=== PATIENT | male | born 1945 | race Caucasian/White ===

== ENCOUNTER → 2019-02-05 10:31 | Outpatient (CLI) | payer MEDICARE, SELFPAY ==
[2019-02-05 11:13] LABS: Hematocrit 40.9 % (41-53); Mean Corpuscular HGB Conc 34.2 % (30-36); Mean Corpuscular Hemoglobin 33.9 PG (26-34); Mean Corpuscular Volume 99.1 fL (80-100); Platelet Count 155 X10^3/uL (150-400); Red Blood Cell Count 4.13 X10^6/uL (4.5-5.9); Red Cell Distribution Width 14.5 % (11.6-14.8); White Blood Cell Count 2.2 X10^3/uL (4.5-11.0)
[2019-02-05 11:15] LABS: Add Manual Diff / Slide Review YES
[2019-02-05 11:44] LABS: Neutrophils Absolute Manual 418 /uL (3000-5900); Total Cells Counted 100
[2019-02-05 11:45] LABS: RBC Morphology Normal Morphology
== END ==
PROVIDERS: Visit Provider Internal Medicine Hematology & Oncology
DX: D46.20 Refractory anemia with excess of blasts, unspecified (principal)
CPT/HCPCS: 36415; 85025

== ENCOUNTER → 2019-03-12 14:00 | Oncology outpatient (ONC) | payer MEDICARE, SELFPAY ==
[2018-07-16 14:32] LABS: Hematocrit 36.2 % (41-53); Hemoglobin 12.4 g/dL (13.5-17.5); Mean Corpuscular HGB Conc 34.2 % (30-36); Mean Corpuscular Hemoglobin 33.6 PG (26-34); Platelet Count 174 X10^3/uL (150-400); Red Blood Cell Count 3.69 X10^6/uL (4.5-5.9); White Blood Cell Count 2.1 X10^3/uL (4.5-11.0)
[2018-07-16 14:36] LABS: Add Manual Diff / Slide Review YES
[2018-07-16] MEDS: FILGRASTIM-SNDZ 300 MCG/0.5 ML SYRINGE SUBCUT (14:46)
[2018-07-16 15:09] LABS: Neutrophils Absolute Manual 609 /uL (3000-5900); Total Cells Counted 100
[2018-07-16 15:11] LABS: RBC Morphology Normal Morphology
[2018-07-16 15:28] VITALS: BP 132/82; PULSE 62; RESP 14; TEMP 36.7
--- NOTE | 2018-07-16 15:32 | PC.NURSE ---
Feliciano comes in for Zario injection. No complaints. WBC = 2.1 D/C ambulatory.
[2018-07-30 14:36] LABS: Mean Corpuscular Hemoglobin 33.6 PG (26-34)
[2018-07-30 14:42] LABS: Hematocrit 38.1 % (41-53); Hemoglobin 13.1 g/dL (13.5-17.5); Mean Corpuscular HGB Conc 34.3 % (30-36); Mean Corpuscular Volume 97.9 fL (80-100); Platelet Count 153 X10^3/uL (150-400); Red Blood Cell Count 3.89 X10^6/uL (4.5-5.9); Red Cell Distribution Width 14.7 % (11.6-14.8)
[2018-07-30 14:43] LABS: Add Manual Diff / Slide Review YES; White Blood Cell Count 1.9 X10^3/uL (4.5-11.0)
[2018-07-30 15:03] LABS: Neutrophils Absolute Manual 228 /uL (3000-5900); RBC Morphology Normal Morphology; Total Cells Counted 50
[2018-07-30 15:09] VITALS: BP 124/71; PULSE 60; RESP 17; O2SAT 96
[2018-07-30] MEDS: FILGRASTIM-SNDZ 300 MCG/0.5 ML SYRINGE SUBCUT (15:11)
[2018-08-27 08:56] LABS: Hematocrit 39.6 % (41-53); Hemoglobin 13.4 g/dL (13.5-17.5); Mean Corpuscular HGB Conc 33.9 % (30-36); Mean Corpuscular Hemoglobin 33.7 PG (26-34); Mean Corpuscular Volume 99.4 fL (80-100); Platelet Count 156 X10^3/uL (150-400); Red Blood Cell Count 3.99 X10^6/uL (4.5-5.9); Red Cell Distribution Width 14.5 % (11.6-14.8)
[2018-08-27 08:59] LABS: White Blood Cell Count 1.6 X10^3/uL (4.5-11.0)
[2018-08-27 09:00] LABS: Add Manual Diff / Slide Review YES
[2018-08-27] MEDS: FILGRASTIM-SNDZ 300 MCG/0.5 ML SYRINGE SUBCUT (09:19)
[2018-08-27 09:56] LABS: Neutrophils Absolute Manual 352 /uL (3000-5900); Total Cells Counted 100
[2018-08-27 09:57] LABS: Anisocytosis 1+; Hypochromasia 2+
[2018-09-10 10:12] LABS: Hematocrit 40.2 % (41-53); Hemoglobin 13.7 g/dL (13.5-17.5); Mean Corpuscular Hemoglobin 33.7 PG (26-34); Mean Corpuscular Volume 98.9 fL (80-100); Platelet Count 145 X10^3/uL (150-400); Red Blood Cell Count 4.07 X10^6/uL (4.5-5.9); Red Cell Distribution Width 14.4 % (11.6-14.8)
[2018-09-10 10:13] LABS: Add Manual Diff / Slide Review YES
[2018-09-10 10:28] VITALS: BP 129/69; PULSE 60; RESP 16; TEMP 36.6
[2018-09-10] MEDS: FILGRASTIM-SNDZ 300 MCG/0.5 ML SYRINGE SUBCUT (10:34)
[2018-09-10 10:37] LABS: Neutrophils Absolute Manual 420 /uL (3000-5900); Total Cells Counted 100
[2018-09-10 10:38] LABS: Macrocytosis 1+
[2018-09-10 10:40] LABS: Platelet Estimate Decreased on smear
[2018-10-08 13:34] LABS: Add Manual Diff / Slide Review NO; Basophils Absolute Auto 0 /uL (0-100); Basophils Percent Auto 0.7 % (0-2); Eosinophils Absolute Auto 0 /uL (0-450); Eosinophils Percent Auto 1.4 % (2-4); Hematocrit 38.2 % (41-53); Lymphocytes Absolute Auto 900 /uL (1100-4500); Lymphocytes Percent Auto 46.7 % (25-40); Mean Corpuscular HGB Conc 34.1 % (30-36); Mean Corpuscular Hemoglobin 33.5 PG (26-34); Mean Corpuscular Volume 98.2 fL (80-100); Monocytes Absolute Auto 600 /uL (0-900); Neutrophils Absolute Auto 500 /uL (1500-7000); Neutrophils Percent Auto 23.2 % (50-75); Platelet Count 174 X10^3/uL (150-400); Red Blood Cell Count 3.89 X10^6/uL (4.5-5.9); Red Cell Distribution Width 14.1 % (11.6-14.8)
[2018-10-08 13:46] VITALS: BP 124/78; PULSE 66; RESP 16; TEMP 36.5
[2018-10-08] MEDS: FILGRASTIM-SNDZ 300 MCG/0.5 ML SYRINGE SUBCUT (13:47)
[2018-10-22 11:35] LABS: Hematocrit 39.1 % (41-53); Hemoglobin 13.1 g/dL (13.5-17.5); Mean Corpuscular HGB Conc 33.5 % (30-36); Mean Corpuscular Volume 98.7 fL (80-100); Platelet Count 132 X10^3/uL (150-400); Red Blood Cell Count 3.96 X10^6/uL (4.5-5.9); Red Cell Distribution Width 14.4 % (11.6-14.8)
[2018-10-22 11:38] LABS: White Blood Cell Count 1.7 X10^3/uL (4.5-11.0)
[2018-10-22 11:39] LABS: Add Manual Diff / Slide Review YES
[2018-10-22] MEDS: FILGRASTIM-SNDZ 300 MCG/0.5 ML SYRINGE SUBCUT (11:58)
[2018-10-22 12:14] LABS: Neutrophils Absolute Manual 476 /uL (3000-5900); Total Cells Counted 50
[2018-10-22 12:16] LABS: Poikilocytosis 1+; RBC Morphology See
--- NOTE | 2018-10-22 12:27 | PC.NURSE ---
Patient in for filgrastim injection and blood draw. WBC 1.7 today. Patient states feeling well. This nurse reviewed prevention measures against infection with him including frequent hand washing, keeping away from crowds, good oral hygiene, good hydration and healthy diet. Patient reports daily exercise and healthy diet with good hydration. He returns tomorrow for an appointment.
[2018-11-19 10:19] LABS: Hematocrit 38.7 % (41-53); Hemoglobin 13.3 g/dL (13.5-17.5); Mean Corpuscular HGB Conc 34.4 % (30-36); Mean Corpuscular Hemoglobin 33.6 PG (26-34); Mean Corpuscular Volume 97.7 fL (80-100); Platelet Count 144 X10^3/uL (150-400); Red Blood Cell Count 3.97 X10^6/uL (4.5-5.9); Red Cell Distribution Width 14.6 % (11.6-14.8); White Blood Cell Count 2.4 X10^3/uL (4.5-11.0)
[2018-11-19 10:20] LABS: Add Manual Diff / Slide Review YES
[2018-11-19] MEDS: FILGRASTIM-SNDZ 300 MCG/0.5 ML SYRINGE SUBCUT (10:35)
[2018-11-19 10:36] LABS: Morphology Comment Normal Morphology; Neutrophils Absolute Manual 384 /uL (3000-5900); Total Cells Counted 100
[2018-11-19 11:00] VITALS: BP 131/76; PULSE 67; RESP 18; TEMP 36.8
[2018-12-03 10:23] VITALS: BP 131/76; PULSE 73; RESP 16; TEMP 36.7; O2SAT 98
[2018-12-03] MEDS: FILGRASTIM-AAFI 300 MCG/0.5 ML SYRINGE SUBCUT (10:24)
[2018-12-03 10:27] LABS: Add Manual Diff / Slide Review NO; Basophils Absolute Auto 0 /uL (0-100); Basophils Percent Auto 0.4 % (0-2); Eosinophils Absolute Auto 0 /uL (0-450); Eosinophils Percent Auto 1.3 % (2-4); Hematocrit 39.1 % (41-53); Hemoglobin 13.4 g/dL (13.5-17.5); Lymphocytes Absolute Auto 900 /uL (1100-4500); Lymphocytes Percent Auto 39.4 % (25-40); Mean Corpuscular HGB Conc 34.2 % (30-36); Mean Corpuscular Hemoglobin 33.7 PG (26-34); Mean Corpuscular Volume 98.5 fL (80-100); Monocytes Absolute Auto 900 /uL (0-900); Monocytes Percent Auto 37.6 % (3-14); Neutrophils Absolute Auto 500 /uL (1500-7000); Neutrophils Percent Auto 21.3 % (50-75); Platelet Count 159 X10^3/uL (150-400); Red Blood Cell Count 3.97 X10^6/uL (4.5-5.9); Red Cell Distribution Width 14.6 % (11.6-14.8); White Blood Cell Count 2.4 X10^3/uL (4.5-11.0)
[2018-12-31 14:11] VITALS: BP 142/75; PULSE 66; RESP 16; TEMP 36.6; O2SAT 97
[2018-12-31] MEDS: FILGRASTIM-AAFI 480 MCG/0.8 ML SYRINGE SUBCUT (14:15)
[2019-01-14 14:09] VITALS: BP 125/79; PULSE 63; RESP 16; TEMP 36.5
[2019-01-14] MEDS: FILGRASTIM-AAFI 480 MCG/0.8 ML SYRINGE SUBCUT (14:23)
[2019-02-12] MEDS: FILGRASTIM-AAFI 480 MCG/0.8 ML SYRINGE SUBCUT (14:31)
[2019-02-12 14:32] VITALS: BP 125/78; PULSE 66; RESP 16; TEMP 36.7
[2019-02-26] MEDS: FILGRASTIM-AAFI 480 MCG/0.8 ML SYRINGE SUBCUT (14:44)
--- NOTE | 2019-02-26 14:53 | PC.NURSE ---
Pt seen in clinic for injection. RR equal and unlabored, face and body relaxed. Conversing with staff appropriately, no s/s of acute distress. gait steady.
[2019-03-12 14:29] VITALS: BP 140/79; PULSE 75; RESP 16; TEMP 36.8; O2SAT 98
[2019-03-12] MEDS: FILGRASTIM-AAFI 480 MCG/0.8 ML SYRINGE SUBCUT (14:33)
== END ==
PROVIDERS: Visit Provider Internal Medicine Hematology & Oncology
DX: D46.9 Myelodysplastic syndrome, unspecified (principal); D70.9 Neutropenia, unspecified
CPT/HCPCS: 36415; 85025; 96372; Q5101; Q5110

== ENCOUNTER → 2022-03-07 07:57 | Outpatient (CLI) | payer MEDICARE, SELFPAY ==
--- NOTE | 2022-03-07 08:03 | DI.RAD.S_ITS ---
PROCEDURE: XR KUB INDICATIONS: hydronephrosis TECHNIQUE: One view of the abdomen acquired. COMPARISON: [facility], CT, CT ABDOMEN PELVIS WITH CONTRAST, 02/28/2022, 13:27. , CR, KUB XRAY (1 VIEW ABDOMEN), 07/28/2015, 9:12. FINDINGS: Surgical changes and devices: None. Bowel: Bowel gas pattern is normal. Soft tissues: There several punctate calcifications overlying the left renal shadow appearing similar when compared to prior exam. However, significant stool is overlying the shadow. In addition, the calcifications overlying the right kidney on previous exam are no longer visualized. Significant stool is also noted overlying the right kidney. Calcification is noted overlying the expected course of the right ureter at the level of L4 noting prior calcification was at approximately L3. Visualized solid organ contours appear normal in size. Bones: No suspicious bony lesions. IMPRESSION: Relatively similar appearance of calcifications overlying the left renal shadow. No calcifications are noted overlying the right renal shadow. Both kidneys are partially obscured with overlying stool. There is a calcification along the course of the right ureter at the level of L4 appearing slightly progressive compared to prior exam. Dictated by: Shelly Ruiz M.D. on 03/07/2022 at 13:25 Approved by: Shelly Ruiz M.D. on 03/07/2022 at 13:58
== END ==
PROVIDERS: PCP Internal Medicine Hematology & Oncology; Referring Provider Specialist; Visit Provider Specialist
DX: N13.2 Hydronephrosis with renal and ureteral calculous obstruction (principal); N21.0 Calculus in bladder; N40.0 Benign prostatic hyperplasia without lower urinary tract symptoms
CPT/HCPCS: 51798; 74018; 81002; 99215

== ENCOUNTER → 2022-03-22 14:59 | Outpatient (CLI) | payer MEDICARE, SELFPAY ==
[2022-03-22 16:55] LABS: COVID19 -Nasal RAPID Negative (Negative)
== END ==
PROVIDERS: PCP Internal Medicine Hematology & Oncology; Visit Provider Specialist
DX: Z20.822 Contact with and (suspected) exposure to COVID-19 (principal)
CPT/HCPCS: 87635

== ENCOUNTER 2022-03-25 06:26 | Day surgery (SDC) | payer MEDICARE, SELFPAY ==
[2022-03-23 08:30] VITALS: BMI 25.0
[2022-03-25] VITALS (8 sets, daily range): BP systolic 123–141; BP diastolic 75–90; PULSE 60–97; RESP 16–17; TEMP 36.2–36.3; O2SAT 94–100; BMI 25.0
--- NOTE | 2022-03-25 07:23 | DI.RAD.S_ITS ---
PROCEDURE: XR KUB INDICATIONS: PREOP TECHNIQUE: One view of the abdomen acquired. COMPARISON: [facility], CT, CT ABDOMEN PELVIS WITH CONTRAST, 02/28/2022, 13:27. [facility], CR, XR KUB, 03/07/2022, 7:53. FINDINGS: Surgical changes and devices: Partially visualized cardiac pacer lead. Bowel: Bowel gas pattern is normal. Soft tissues: Multiple small calcifications project over the left renal shadow and along the course of the right mid ureter are stable compared to prior exams. Visualized solid organ contours appear normal in size. Bones: No suspicious bony lesions. IMPRESSION: Stable right ureteral and left renal stones. Dictated by: Yamila Manzanares MD, PhD on 03/25/2022 at 14:22 Approved by: Yamila Manzanares MD, PhD on 03/25/2022 at 14:23
--- NOTE | 2022-03-25 07:36 | PM.PREOP ---
Pre-operative Note COVID-19 Criteria for continued procedure: Expected advancement of disease process, Increased loss of function, Deterioration of the patient's condition or overall health, Delay expected to result in less-positive ultimate med/surg outcome and Non-surgical alternatives not available or appropriate per current SOC Interval Note History & Physical reviewed/Exam performed by Physician: Yes Changes to H&P: No
--- NOTE | 2022-03-25 08:17 | SUR.OPER ---
Supine on ESWL bed, head on pillow, arms at sides with <90 degrees abduction, legs uncrossed, wedge under knees. Gel pads under bilateral elbows and heels.
--- NOTE | 2022-03-25 08:27 | SUR.OPER ---
Patient has pitting edema on bilateral ankles/feet. Informed by pre-op nurse. Anesthesia MD & Surgeon aware.
[2022-03-25] MEDS: LACTATED RINGERS 1,000 ML 42 ML IV (09:08)
--- NOTE | 2022-03-25 09:14 | PM.OP.1 ---
Operative Date/Time/Diagnoses Date of procedure: 03/25/22 Time of procedure: 09:05 Pre-op diagnosis: Right proximal ureteral calculi x2. Post-op diagnosis: same Procedure & Clinicians Procedure: 1. Right extracorporeal shockwave lithotripsy (maximal power level 9.0 x 3000 shocks) Same procedure as scheduled: Yes Indications: 1. Right proximal ureteral calculi x2. 2. Moderately severe right hydronephrosis. Surgeon: Joselyn Aceves Click Yes if Unassisted: Yes Anesthesia Type: General Operative Notes Findings: Index calculi are unchanged in position verses perioperative imaging. Closure Type: not applicable Specimen(s): none sent Estimated Blood Loss (mL): 0 Procedure in detail: Patient was positioned supine was administered general anesthesia. The above-described calculi were localized in the X, Y, and Z planes. Lithotripsy was then commenced at minimal power level and gradually increased to maximal power level of 9.0. Treatment was initiated at the lower edge of the leading stone. Throughout the case there was S satisfactory evidence of stone fragmentation, with the exception of the most leading margin of the most distal calculus. At 3000 shocks treatment was halted. The patient was then awakened, transferred to [facility], and transported to PACU in stable condition. Complications: none Post-operative Condition: stable Disposition: PACU Plan for aftercare: Discharge home.
--- NOTE | 2022-03-25 09:18 | SUR.PHASEI ---
Pacemaker rep from [place] [facility] to reset pacemaker to preop settings. pt has been in asynchronous setting since preop.
== END 2022-03-25 09:47 | disposition home or self-care (01) ==
PROVIDERS: PCP Internal Medicine Hematology & Oncology; Referring Provider Specialist; Visit Provider Specialist
PROC: (CPT 50590; principal; 2022-03-25 07:45)
DX: N20.1 Calculus of ureter (principal); N13.30 Unspecified hydronephrosis; Z95.0 Presence of cardiac pacemaker
CPT/HCPCS: 50590; 74018; J1100; J2405; J2704

== ENCOUNTER → 2022-04-04 08:21 | Outpatient (CLI) | payer MEDICARE, SELFPAY ==
--- NOTE | 2022-04-04 08:22 | DI.RAD.S_ITS ---
PROCEDURE: XR KUB INDICATIONS: bladder and ureteral calculus TECHNIQUE: One view of the abdomen acquired. COMPARISON: [facility], CR, XR KUB, 03/25/2022, 7:32. FINDINGS: Surgical changes and devices: None. Bowel: Bowel gas pattern is nonobstructive. Moderate fecal stasis throughout the colon is seen. Soft tissues: Multiple calcifications are again seen projecting in left renal fossa unchanged from prior study. Previously noted calcifications along the course of right mid ureter are no longer seen. Multiple phleboliths are noted in lower pelvis. Visualized solid organ contours appear normal in size. Bones: No suspicious bony lesions. IMPRESSION: Previously described possible right ureteral stones are not seen on the current study. Stable appearing left renal calculi. Dictated by: Yuriy Jimenez M.D. on 04/04/2022 at 10:33 Approved by: Yuriy Jimenez M.D. on 04/04/2022 at 10:48
== END ==
PROVIDERS: PCP Internal Medicine Hematology & Oncology; Referring Provider Specialist; Visit Provider Specialist
DX: N20.2 Calculus of kidney with calculus of ureter; N21.0 Calculus in bladder
CPT/HCPCS: 74018; 82365; 99215

== ENCOUNTER → 2022-04-04 11:47 | Outpatient (CLI) | payer MEDICARE, SELFPAY ==
[2022-04-08 07:45] LABS: Ca oxalate monohydr 100 % (.); Size 4x4 mm (.)
== END ==
PROVIDERS: PCP Internal Medicine Hematology & Oncology; Visit Provider Specialist
DX: N20.0 Calculus of kidney (principal)
CPT/HCPCS: 82365

== ENCOUNTER → 2022-04-19 09:02 | Outpatient (CLI) | payer MEDICARE, SELFPAY ==
[2022-04-19 10:32] LABS: BUN Creatinine Ratio 20.6 (6-22); Blood Urea Nitrogen 29 mg/dL (9-20); Calcium 9.1 mg/dL (8.4-10.2); Carbon Dioxide 27 mmol/L (22-32); Chloride 102 mmol/L (98-107); Estimated Glomerular Filt Rate 51 mL/min (>60); Glucose 111 mg/dL (80-110); HEMOLYSIS < 15 (0-50); Potassium 4.5 mmol/L (3.4-5.1); Sodium 140 mmol/L (137-145)
== END ==
PROVIDERS: PCP Internal Medicine Hematology & Oncology; Referring Provider Nurse Practitioner Acute Care; Visit Provider Nurse Practitioner Acute Care
DX: I50.9 Heart failure, unspecified (principal); R60.9 Edema, unspecified
CPT/HCPCS: 36415; 80048

== ENCOUNTER → 2022-05-27 08:55 | Outpatient (CLI) | payer MEDICARE, SELFPAY ==
--- NOTE | 2022-05-27 08:56 | DI.RAD.S_ITS ---
PROCEDURE: XR KUB INDICATIONS: Kidney stone TECHNIQUE: One view of the abdomen acquired. COMPARISON: [facility], CR, XR KUB, 04/04/2022, 8:27. FINDINGS: Surgical changes and devices: None. Bowel: Bowel gas pattern is normal. Soft tissues: Unchanged stones in the left kidney. No stones in the right kidney. No suspicious abdominal calcifications. Visualized solid organ contours appear normal in size. There are multiple pelvic phleboliths. Bones: No suspicious bony lesions. IMPRESSION: 1. Stable appearing stones in the left kidney. 2. No stones identified in the right kidney. Dictated by: Vincent Bull M.D. on 05/27/2022 at 9:52 Approved by: Vincent Bull M.D. on 05/27/2022 at 9:54
== END ==
PROVIDERS: PCP Internal Medicine Hematology & Oncology; Referring Provider Specialist; Visit Provider Specialist
DX: N20.0 Calculus of kidney (principal); N21.0 Calculus in bladder
CPT/HCPCS: 36415; 74018; 82310; 83970; 84550

== ENCOUNTER → 2022-05-27 09:05 | Outpatient (CLI) | payer MEDICARE, SELFPAY ==
[2022-05-27 11:07] LABS: Calcium 9.1 mg/dL (8.4-10.2); Uric Acid 6.5 mg/dL (3.5-8.5)
[2022-05-28 08:08] LABS: Calcium 8.2 mg/dL (8.6-10.2); Parathyroid Hormone, Intact 48 pg/mL (15-65)
== END ==
PROVIDERS: PCP Internal Medicine Hematology & Oncology; Referring Provider Specialist; Visit Provider Specialist
DX: N20.1 Calculus of ureter (principal); N21.0 Calculus in bladder
CPT/HCPCS: 36415; 82310; 83970; 84550

== ENCOUNTER → 2022-06-21 08:21 | Outpatient (CLI) | payer MEDICARE, SELFPAY ==
--- NOTE | 2022-06-21 08:22 | DI.CT.S_ITS ---
PROCEDURE: CT KIDNEY URETER BLADDER (KUB) INDICATIONS: Kidney Stones check TECHNIQUE: Axial sections were acquired from the lung bases to the pubic symphysis. Coronal and sagittal reformats were performed. For radiation dose reduction, the following was used: automated exposure control, adjustment of mA and/or kV according to patient size. COMPARISON: [facility], CT, CT ABDOMEN PELVIS WITH CONTRAST, 02/28/2022, 13:27. [facility], CT, KIDNEY/ URETER/BLADDER, 12/21/2013, 9:05. FINDINGS: Image quality: Excellent. Lung bases: Unremarkable. Heart: Pacemaker leads partially imaged. Heart size is normal. URINARY: Right Kidney: Several calcified and partially calcified nonobstructing calculi in the right kidney, the largest measuring 5 mm with Hounsfield units of 327. There is no hydronephrosis or significant perirenal inflammation. Right Ureter: No hydroureter or ureteral calcifications. Left Kidney: Several calcified and wispy calcifications in the left kidney. Largest in the lower pole measures about 4 mm with Hounsfield units of 527. No hydronephrosis. Left Ureter: No hydroureter or ureteral calcifications. Bladder: The urinary bladder is decompressed. There are two bladder calculi immediately distal to the right UVJ measuring 6 mm and 10 mm. ABDOMEN: Liver: No suspicious mass. Gallbladder: Decompressed. Biliary ducts: Nondilated. Pancreas: Normal contour. Spleen: Normal size. Adrenal Glands: No nodules. Stomach and Bowel: Stomach, small bowel loops, and colon are unremarkable. Peritoneum: No abnormal intraperitoneal fluid. No free air. Ventral Wall: Tiny fat containing umbilical hernia. Abdominal Nodes: No enlarged retroperitoneal or mesenteric lymph nodes. Vessels: Aorta and inferior vena cava are normal in size. PELVIS: Pelvic Organs: The prostate gland is mildly enlarged measuring about 5.1 x 4.6 by 6.2 cm. Pelvic Nodes: Unremarkable. Miscellaneous: Very small fat containing right inguinal hernia. Bones: Decreased mineralization throughout the pelvis. Disc degeneration L4-5 and sacralization at the L5-S1 level. IMPRESSION: 1. Interval passage of previous obstructing right ureteral calcification. Calcification is now seen in the urinary bladder. 2. There are several other smaller bilateral nonobstructing calcifications. 3. Mildly enlarged prostate gland. Dictated by: Radha Jeffrey M.D. on 06/21/2022 at 11:35 Approved by: Radha Jeffrey M.D. on 06/21/2022 at 11:43
== END ==
PROVIDERS: PCP Internal Medicine Hematology & Oncology; Referring Provider Specialist; Visit Provider Specialist
DX: N20.2 Calculus of kidney with calculus of ureter (principal); N21.0 Calculus in bladder; Z95.0 Presence of cardiac pacemaker; N40.0 Benign prostatic hyperplasia without lower urinary tract symptoms
CPT/HCPCS: 74176

== ENCOUNTER → 2022-06-25 08:05 | Outpatient (CLI) | payer MEDICARE, SELFPAY ==
--- NOTE | 2022-06-25 08:08 | DI.RAD.S_ITS ---
PROCEDURE: XR KUB INDICATIONS: Kidney stone TECHNIQUE: One view of the abdomen acquired. COMPARISON: [facility], CT, CT KIDNEY URETER BLADDER (KUB), 06/21/2022, 8:30. [facility], CR, XR KUB, 05/27/2022, 8:59. FINDINGS: Surgical changes and devices: None. Bowel: Moderate fecal debris throughout the colon Soft tissues: Stippled 2-3 mm calcification projects over the left renal corey. Pelvic phleboliths are similar to the prior Bones: No suspicious bony lesions. IMPRESSION: Stippled calcifications projecting over the left renal corey. Moderate fecal debris obscures renal shadows. No bowel obstruction. Approved by: Trav Howard M.D. on 06/25/2022 at 9:00
== END ==
PROVIDERS: PCP Internal Medicine Hematology & Oncology; Referring Provider Urology; Visit Provider Urology
DX: N20.2 Calculus of kidney with calculus of ureter (principal); N21.0 Calculus in bladder
CPT/HCPCS: 74018

== ENCOUNTER → 2022-07-08 10:37 | Outpatient (CLI) | payer MEDICARE, SELFPAY ==
[2022-07-08 11:20] LABS: COVID19 -Nasal RAPID Negative (Negative)
== END ==
PROVIDERS: PCP Internal Medicine Hematology & Oncology; Visit Provider Urology
DX: Z20.822 Contact with and (suspected) exposure to COVID-19 (principal)
CPT/HCPCS: 87635; C9803

== ENCOUNTER 2022-07-11 07:59 | Day surgery (SDC) | payer MEDICARE, SELFPAY ==
[2022-07-08 07:25] VITALS: BMI 25.0
[2022-07-11] VITALS (7 sets, daily range): BP systolic 131–164; BP diastolic 74–89; PULSE 60; RESP 13–21; TEMP 36.3–36.4; O2SAT 97–100; BMI 25.0
--- NOTE | 2022-07-11 08:40 | PM.PREOP ---
Pre-operative Note COVID-19 Criteria for continued procedure: Expected advancement of disease process, Possibility delay results in more complex future surgery or treatment, Deterioration of the patient's condition or overall health, Delay expected to result in less-positive ultimate med/surg outcome and Non-surgical alternatives not available or appropriate per current SOC Interval Note History & Physical reviewed/Exam performed by Physician: Yes Changes to H&P: No
[2022-07-11] MEDS: LACTATED RINGERS 1,000 ML 42 ML IV (09:04)
[2022-07-11] MEDS: CIPROFLOXACIN 400 MG/200 ML PIGGYBACK 200 MG IV (09:15)
--- NOTE | 2022-07-11 10:15 | SUR.OPER ---
Lithotomy on padded OR bed, head on pillow, arms secured on padded arm boards at <90 degrees abduction. Legs secured in padded yellow fins stirrups. Wrists padded with gel pads / folded towels for support.
--- NOTE | 2022-07-11 10:31 | PM.OP.1 ---
Operative Date/Time/Diagnoses Date of procedure: 07/11/22 Time of procedure: 10:31 Pre-op diagnosis: 1. Bladder calculi x2. 2. History of nephrolithiasis. Post-op diagnosis: other (3. Bulbar urethral stricture. 4. Right distal ureteral calculus ) Procedure & Clinicians Procedure: 1. Cystoscopy/dilation bulbar urethral stricture. 2. Cystoscopy/right ureteral stone extraction. 3. Laser litholapaxy x2. Same procedure as scheduled: No (Additional procedures secondary to intraoperative findings.) Indications: 1. Bladder calculus. 2. Right distal ureteral calculus. 3. Bulbar urethral stricture. Surgeon: Joselyn Aceves Click Yes if Unassisted: Yes Anesthesia Type: General Operative Notes Findings: 1. Urethra-penile and distal bulbar segment without lesion or annular stricture. There was a 12-14 [place] proximal bulbar urethral stricture. 2. External sphincter-coapted with normal overlying urothelium. 3. Prostate 4.5+ cm length with moderately obstructing trilobar hyperplasia. Modest intravesical protrusion of median lobe. 4. Bladder-1+ trabeculation. Left ureteral orifices in normal position and configuration. The right ureteral orifice also in normal position and configuration. The smaller of the 2 index calculi identified on preoperative imaging was actually visualized just inside the right ureteral orifice. The larger of the index calculi was readily seen lying dependently in the bladder base. Closure Type: not applicable Specimen(s): none sent (Bladder calculus fragments admixed with right ureteral calculus fragments.) Applied: catheter (Eighteen [place] Rincon tip catheter.) Estimated Blood Loss (mL): 2 Blood products transfused: none Procedure in detail: The patient was positioned in supine was administered general anesthesia. He was then repositioned in semi lithotomy and the lower abdomen, genitalia, and groin were then prepped and draped in sterile fashion. The continuous-flow laser endoscope was then passed lower urinary tract with the findings as described above up to the level of the bulbar stricture. At this time, the laser working element was removed and fitted with a standard bridge. An Amplatz super stiff 0.35 guidewire was then advanced under direct visualization through the aperture of the noted stricture and advanced proximally. The beak of the laser cystoscope sheath was then directed downward and advanced forward over the wire, resulting in gentle dilation and disruption of the aforementioned stricture. The scope was then advanced into the bladder with the findings as described above. The Amplatz super stiff guidewire was then backloaded out of the scope and examination of the inner bladder findings were as above. The Amplatz super stiff guidewire was again advanced the scope and then directed into the right ureter orifice and advanced proximally. Over this a 15 [place] by 6 cm balloon dilating catheter was positioned across the right ureterovesical junction and intramural ureter. The balloon was inflated to 18 atmospheres for 5 minutes. The balloon was then backloaded off the Amplatz guidewire and upon withdrawal of the dilating balloon the stone that had been visualized in the very distal right ureteral/intramural segment passed into the bladder and lie dependently adjacent to the larger of the 2 calculi. The super stiff wire was backloaded out of the scope. The laser resectoscope was then refitted with the working element. A 500 micron laser fiber was requested. All operating room personnel and patient were fitted with laser safety eyewear. Lithotripsy was then commenced with successful fragmentation of both calculi into much smaller pieces. The EverTune evacuator was then utilized to clear the bladder of essentially all fragments other than a couple of small particles adherent to the mucosa. 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 The bladder was then partially filled. The super stiff Amplatz wire was again advanced through the working port of the laser scope. The scope was then back loaded off the wire. Now an 18 [place] Rincon tip catheter was requested, and advanced over the wire and into the bladder. The wire was removed and the balloon was filled with 10 cc of sterile saline. The catheter was placed to gravity drainage. The patient was then repositioned in supine, was awakened, transferred to [facility], and transported to PACU in stable condition. Complications: none Post-operative Condition: stable Disposition: PACU Plan for aftercare: Discharge home.
[2022-07-11] MEDS: OXYCODONE/ACETAMINOPHEN 5/325 TABLET 1 TAB PO (11:01)
[2022-07-11] MEDS: PHENAZOPYRIDINE 100 MG TABLET 200 MG PO (11:05)
[2022-07-15 18:13] LABS: Ca oxalate monohydr 100 % (.); Size 3x5 mm (.)
== END 2022-07-11 11:36 | disposition home or self-care (01) ==
PROVIDERS: PCP Internal Medicine Hematology & Oncology; Referring Provider Specialist; Visit Provider Specialist
PROC: 0TCB8ZZ Extirpation of Matter from Bladder, Via Natural or Artificial Opening Endoscopic (ICD-10-PCS; CPT 52317; principal; 2022-07-11 09:45)
DX: N21.0 Calculus in bladder (principal); N20.1 Calculus of ureter; N35.812 Other bulbous urethral stricture, male; Z95.0 Presence of cardiac pacemaker; C95.90 Leukemia, unspecified not having achieved remission
CPT/HCPCS: 52317; 82365; J0744; J3010

== ENCOUNTER → 2022-08-04 10:02 | Outpatient (CLI) | payer MEDICARE, SELFPAY | PROVIDERS: PCP Internal Medicine Hematology & Oncology; Referring Provider Specialist; Visit Provider Specialist | DX: N20.1 Calculus of ureter (principal) | CPT/HCPCS: 87086 ==

== ENCOUNTER 2024-06-02 11:31 | Emergency (ER) | payer MEDICARE, SELFPAY ==
[2024-06-02] VITALS (14 sets, daily range): BP systolic 118–164; BP diastolic 71–89; PULSE 62–80; RESP 10–21; TEMP 36.7; O2SAT 96–100; BMI 24.6
[2024-06-02] MEDS: SODIUM CHLORIDE 0.9% 1,000 ML 1000 ML IV ×2 (11:50→14:54)
[2024-06-02 11:55] LABS: Hematocrit 42.7 % (41-53); Hemoglobin 14.9 g/dL (13.5-17.5); Mean Corpuscular HGB Conc 34.9 % (30-36); Mean Corpuscular Hemoglobin 35.8 PG (26-34); Mean Corpuscular Volume 102.5 fL (80-100); Platelet Count 188 X10^3/uL (150-400); Red Blood Cell Count 4.16 X10^6/uL (4.5-5.9)
[2024-06-02 11:56] LABS: Add Manual Diff / Slide Review YES
[2024-06-02 12:04] LABS: Alanine Aminotransferase 18 IU/L (<50); Albumin 5.1 g/dL (3.5-5.0); Albumin Globulin Ratio 1.5 (1.0-2.8); Alkaline Phosphatase 75 U/L (38-126); Aspartate Aminotransferase 28 IU/L (17-59); BUN Creatinine Ratio 10.9 (6-22); Bilirubin Total 1.3 mg/dL (0.2-1.3); Blood Urea Nitrogen 15 mg/dL (9-20); Calcium 9.9 mg/dL (8.4-10.2); Carbon Dioxide 24 mmol/L (22-32); Chloride 100 mmol/L (98-107); Estimated Glomerular Filt Rate 52 mL/min (>60); Globulin 3.5 g/dL (1.7-4.1); Glucose 102 mg/dL (80-110); HEMOLYSIS < 15 (0-50); Potassium 3.5 mmol/L (3.4-5.1); Sodium 138 mmol/L (137-145); Total Protein 8.6 g/dL (6.3-8.2)
[2024-06-02 12:13] LABS: Macrocytosis 1+; Neutrophils Absolute Manual 400 /uL (3000-5900); Total Cells Counted 100
--- NOTE | 2024-06-02 12:38 | PC.NURSE ---
Pt reports feeling weak. N/V. Last vomited 2 days ago. Pt states he started to not feel well around 2 the day he had eaten moldy cherries. Pt states he also has leukemia but is not currently on chemo.
--- NOTE | 2024-06-02 12:41 | PC.NURSE ---
Pt reports he is able to pass gas and has had no diarrhea
--- NOTE | 2024-06-02 12:50 | EKG_ITS ---
[address] [address] [place] [address] Test Date: 2024-06-02 Pat Name: Ganga Murphy Department: [facility] Room: Gender: Male [employer]: [employer] : 1945 Requested By: Order Number: [id number] Reading MD: Anibal Mar Measurements Intervals Evans Rate: 78 P: 10 WI: 170 QRS: -66 QRSD: 160 T: 77 QT: 442 QTc: 503 Interpretive Statements Atrial-sensed ventricular-paced rhythm with frequent and consecutive premature ventricular complexes Electronically Signed On 06-02-2024 15:39:01 PDT by Anibal Mar
[2024-06-02 13:21] LABS: Lactate (Lactic Acid) 2.6 mmol/L (0.7-2.1)
[2024-06-02 13:39] LABS: Reflexed Lactate in 2 Hours Y
--- NOTE | 2024-06-02 13:41 | ED.NAVMDI ---
HPI - Nausea/Vomiting/Diarrhea General Chief complaint: Nausea/Vomiting/Diarrhea Stated complaint: Lukemia Not feeling good , can't stand Time Seen by Provider: 06/02/24 12:02 Source: patient and family Mode of arrival: Wheelchair History of Present Illness HPI Narrative: 78-year-old male with history of myelodysplastic syndrome diagnosed about 15 years ago, remote chemotherapy but none for the last 10 years, followed most recently by hematology-oncology at [facility], awaiting bone marrow biopsy diagnostic procedure to be scheduled, a few days ago ate some cherries in his refrigerator noted to be moldy, subsequently had multiple episodes of vomiting and diarrhea. No black or red emesis. No black or red stools. Has headache, some double vision. No injury or trauma. No history of strokes known. Related Data Previous Rx's Medication Instructions Recorded tamsulosin 0.4 mg capsule 0.4 mg PO BEDTIME #90 caps 07/11/22 ondansetron 4 mg disintegrating 4 mg PO Q6H PRN nausea and 06/02/24 tablet vomiting #7 tabs Allergies Allergy/AdvReac Type Severity Reaction Status Date / Time penicillin G [PENICILLIN G] AdvReac Unknown ITCHING Verified 06/02/24 11:39 Review of Systems Review of Systems Narrative: see HPI Patient History Medical History (Updated 06/02/24 @ 16:17 by Radu Teague MD) BPH w urinary obs/LUTS History of nephrolithiasis Pacemaker Left nephrolithiasis Bladder calculus Right ureteral calculus Hx of nephrolithotomy with removal of calculi History of pacemaker (08/07/17) History of leukemia Surgical History Hx of arthroscopy of shoulder History of arthroplasty of knee History of cataract extraction History of urologic surgery (03/25/22) Hx of vasectomy Hx of circumcision Hx of cystoscopy Hx of appendectomy Family History Mother Kidney stones Social History marital status: household members: none Smoking Status: Former smoker Tobacco: How many years used: 10 alcohol intake: current caffeine: Yes Type(s) of exercise: independent ambulation and regular exercise frequency: daily duration: > 90 minutes/day Smoking Status: Former smoker alcohol intake frequency: a few times a month Substance Use Type: does not use Exam Narrative Exam Narrative: GENERAL: Well-developed patient, in mild distress. HEAD: Atraumatic. Normocephalic. EYES: Pupils equal round and reactive. Extraocular motions intact. No scleral icterus. No injection or drainage. ENT: Nose without bleeding, purulent drainage. Throat without erythema, tonsillar hypertrophy or exudate. Airway patent. NECK: Trachea midline. Non tender CARDIOVASCULAR: Regular rate and rhythm without murmurs, gallops, or rubs. RESPIRATORY: Clear to auscultation. Breath sounds equal bilaterally. No wheezes, rales, or rhonchi. GASTROINTESTINAL: Abdomen soft, non-tender, nondistended. EXTREMITIES: No edema or joint tenderness. BACK: Nontender without deformity or crepitance. No flank tenderness. NEURO: AOx3. Motor function grossly nonfocal SKIN: No rash or erythema of visible areas Initial Vital Signs Initial Vital Signs: Vital Signs Pulse Rate 76 06/02/24 11:38 Pulse Oximetry 100 06/02/24 11:38 Course Orders Ordered: ED Orders 06/02/24 13:42 Urine Microscopic Stat 06/02/24 14:52 CT head/brain wo con Stat Discontinued Medications Acetaminophen (Acetaminophen 325 Mg Tablet) 975 mg PO NOW ONE Stop: 06/02/24 15:01 Last Admin: 06/02/24 15:08 Dose: 975 mg Documented By: SOCO Diphenhydramine HCl (Diphenhydramine 50 Mg/Ml Vial) 25 mg IV NOW ONE Stop: 06/02/24 15:11 Last Admin: 06/02/24 16:08 Dose: Not Given Documented By: SOCO Sodium Chloride (Normal Saline 0.9%) 1,000 mls @ 1,000 mls/hr IV BOLUS ONE Stop: 06/02/24 12:40 Last Infusion: 06/02/24 12:56 Dose: Infused Documented By: Admin: 06/02/24 11:50 Dose: 1,000 mls/hr Documented By: SOCO Sodium Chloride (Normal Saline 0.9%) 1,000 mls @ 1,000 mls/hr IV BOLUS ONE Stop: 06/02/24 15:12 Last Admin: 06/02/24 14:17 Dose: Not Given Documented By: SOCO Sodium Chloride (Normal Saline 0.9%) 1,000 mls @ 1,000 mls/hr IV BOLUS ONE Stop: 06/02/24 15:47 Last Infusion: 06/02/24 16:08 Dose: Infused Documented By: Admin: 06/02/24 14:54 Dose: 1,000 mls/hr Documented By: SOCO Ondansetron HCl (Ondansetron 4 Mg/2 Ml Inj) 4 mg IV NOW PRN PRN Reason: Nausea And Vomiting Ondansetron HCl (Ondansetron 4 Mg Odt) 4 mg SL NOW PRN PRN Reason: Nausea And Vomiting Prochlorperazine (Prochlorperazine 10 Mg/2 Ml Vial) 5 mg IV NOW ONE Stop: 06/02/24 15:11 Last Admin: 06/02/24 16:08 Dose: Not Given Documented By: SOCO Vital Signs Vital signs: Vital Signs - 8 hr 06/02/24 15:07 06/02/24 15:10 06/02/24 15:10 Temperature Pulse Rate 70 79 Respiratory Rate 21 16 Blood Pressure 153/82 H Pulse Oximetry 06/02/24 15:30 06/02/24 15:30 06/02/24 16:00 Temperature Pulse Rate 62 Respiratory Rate 16 Blood Pressure 164/81 H 156/77 H Pulse Oximetry 97 06/02/24 16:00 06/02/24 16:27 Temperature 98.1 F Pulse Rate 63 Respiratory Rate 18 Blood Pressure Pulse Oximetry 96 MDM - Nausea/Vomiting/Diarrhea Lab Data Attestation: I reviewed the patient's lab results. 06/02/24 11:46 06/02/24 11:46 Labs: Lab Results 06/02/24 06/02/24 06/02/24 Range/Units 11:11 11:46 13:42 WBC 4.0 L (4.5-11.0) X10^3/uL RBC 4.16 L (4.5-5.9) X10^6/uL Hgb 14.9 (13.5-17.5) g/dL Hct 42.7 (41-53) % MCV 102.5 H (80-100) fL MCH 35.8 H (26-34) PG MCHC 34.9 (30-36) % RDW 16.0 H (11.6-14.8) % Plt Count 188 (150-400) X10^3/uL Neut % (Auto) Not Reportable Lymph % (Auto) Not Reportable [place] % (Auto) Not Reportable Eos % (Auto) Not Reportable Baso % (Auto) Not Reportable Lymph # (Auto) Not Reportable [place] # (Auto) Not Reportable Baso # (Auto) Not Reportable Total Counted 100 Seg Neutrophils % 7.0 L (38-70) % Band Neutrophils % 3.0 (3-7) % Lymphocytes % (Manual) 40.0 (25-45) % Atypical Lymphs % 7.0 H ( - 0) % Monocytes % (Manual) 42.0 H (2-11) % Basophils % (Manual) 1.0 (0-1) % Neutrophils # (Manual) 400 L (7416-1067) /uL RBC Morphology Not Reportable Macrocytosis 1+ H Sodium 138 (137-145) mmol/L Potassium 3.5 (3.4-5.1) mmol/L Chloride 100 (98-107) mmol/L Carbon Dioxide 24 (22-32) mmol/L BUN 15 (9-20) mg/dL Creatinine 1.37 H (0.66-1.25) mg/dL Estimated GFR 52 L (>60) mL/min BUN/Creatinine Ratio 10.9 (6-22) Glucose 102 (80-110) mg/dL Lactate 2.6 H (0.7-2.1) mmol/L Calcium 9.9 (8.4-10.2) mg/dL Total Bilirubin 1.3 (0.2-1.3) mg/dL AST 28 (17-59) IU/L ALT 18 (<50) IU/L Alkaline Phosphatase 75 (38-126) U/L Total Protein 8.6 H (6.3-8.2) g/dL Albumin 5.1 H (3.5-5.0) g/dL Globulin 3.5 (1.7-4.1) g/dL Albumin/Globulin Ratio 1.5 (1.0-2.8) Urine RBC None seen (0-5/HPF) Urine WBC None seen (0-5/HPF) Ur Squamous Epith Cells None seen (0-5/HPF) Urine Bacteria None seen (None) Urine Mucus 1+ H (Negative) Ur Culture Indicated? Cult not indicated Vol Urine Centrifuged 10ml (spun) 06/02/24 Range/Units 13:55 WBC (4.5-11.0) X10^3/uL RBC (4.5-5.9) X10^6/uL Hgb (13.5-17.5) g/dL Hct (41-53) % MCV (80-100) fL MCH (26-34) PG MCHC (30-36) % RDW (11.6-14.8) % Plt Count (150-400) X10^3/uL Neut % (Auto) Lymph % (Auto) [place] % (Auto) Eos % (Auto) Baso % (Auto) Lymph # (Auto) [place] # (Auto) Baso # (Auto) Total Counted Seg Neutrophils % (38-70) % Band Neutrophils % (3-7) % Lymphocytes % (Manual) (25-45) % Atypical Lymphs % ( - 0) % Monocytes % (Manual) (2-11) % Basophils % (Manual) (0-1) % Neutrophils # (Manual) (2326-8946) /uL RBC Morphology Macrocytosis Sodium (137-145) mmol/L Potassium (3.4-5.1) mmol/L Chloride (98-107) mmol/L Carbon Dioxide (22-32) mmol/L BUN (9-20) mg/dL Creatinine (0.66-1.25) mg/dL Estimated GFR (>60) mL/min BUN/Creatinine Ratio (6-22) Glucose (80-110) mg/dL Lactate 1.7 (0.7-2.1) mmol/L Calcium (8.4-10.2) mg/dL Total Bilirubin (0.2-1.3) mg/dL AST (17-59) IU/L ALT (<50) IU/L Alkaline Phosphatase (38-126) U/L Total Protein (6.3-8.2) g/dL Albumin (3.5-5.0) g/dL Globulin (1.7-4.1) g/dL Albumin/Globulin Ratio (1.0-2.8) Urine RBC (0-5/HPF) Urine WBC (0-5/HPF) Ur Squamous Epith Cells (0-5/HPF) Urine Bacteria (None) Urine Mucus (Negative) Ur Culture Indicated? Vol Urine Centrifuged Urine Dip Bedside Urine Glucose Negative Bedside Urine Bilirubin - Negative Bedside Urine Ketone +/- 5 Urine Specific [place] 1.015 Bedside Urine Occult Blood +/- Bedside Urine pH 6.0 Bedside Urine Protein +/- 15 Bedside Urine Urobilinogen - Negative Bedside Urine Nitrite - Negative Bedside Urine Leukocytes - Negative Esterase Imaging Data CT scan - head: Radiologist's Impression: [address] [address] [address] Scan Report Signed Patient: Ganga Murphy MR#: [id number] : 1945 Acct:[id number] Age/Sex: 78 / M Date of Service: 06/02/24 Loc: ED Accession Number: [id number] Procedure: CT head/brain wo con Ordering Provider: Radu Teague MD PROCEDURE: CT HEAD/BRAIN WO CON INDICATIONS: double vision, SANTILLAN TECHNIQUE: Noncontrast 4.5 mm thick angled axial sections acquired from the foramen magnum to the vertex, with coronal and sagittal reformats. For radiation dose reduction, the following was used: automated exposure control, adjustment of mA and/or kV according to patient size. COMPARISON: None. FINDINGS: Image quality: Diagnostic. CSF spaces: Basal cisterns are patent. No extra-axial fluid collections. The ventricles are symmetric in size and shape. Brain: No intracranial bleeds or masses. There is cerebral volume loss for age, with resultant ventricular and sulcal prominence. There are periventricular and deep white matter chronic small vessel ischemic changes. Skull and face: Calvarium and visualized facial bones appear intact, without suspicious lesions. Sinuses: Visualized sinuses and mastoids are clear. IMPRESSION: No acute intracranial pathology. Dictated by: Myrna Pickard M.D. on 06/02/2024 at 14:17 Approved by: Myrna Pickard M.D. on 06/02/2024 at 14:19 ECG Data Attestation: I personally reviewed and interpreted this ECG as follows: Interpretation: Atrial sensed ventricular paced rhythm with rate 78. QRS 160, QTC 503. MDM Narrative Medical decision making narrative: History of leukemia, awaiting bone marrow biopsy, no active recent chemotherapy, 8 bolus cherries and had mold on it, multiple episodes nausea and vomiting, also has headache and some intermittent double vision. Nonfocal neuro exam. Afebrile, sirs screen negative. IV fluid bolus. Labs pending. Stool pathogens study if he produces a specimen No stool specimen. CT Head negative. Patient felt better after antiemetics, fluids, ambulated. Offered compaize for headache, but his nausea and headahce symptoms improved without compazine after IV hydration. Home with friend Discharge Plan Departure Patient Disposition: Home Clinical Impression: Nausea & vomiting, Food poisoning, Headache, Dehydration Activity Restrictions/Additional Instructions: Recent accidental ingestion a bowl of cherries that happened to have mold on it, subsequent multiple episodes of nonbloody vomiting, no diarrhea, also some headache. Likely dehydration by history, screening labs unremarkable. Antinausea medications given, symptoms improved. CT head scan due to persisting headache negative. Eventually headache seemed to get better with Tylenol and IV hydration, declined offered Compazine. Symptoms most consistent with food poisoning in associated nausea and vomiting with dehydration. Symptoms improved, able to take oral fluids, ambulatory in the emergency department without symptoms. Avoid contaminated food in the future. Antinausea medications your pharmacy to use if needed. Prescription for ondansetron antinausea medication to fill if you need. Prescriptions: New ondansetron 4 mg tablet,disintegrating 4 mg PO Q6H PRN (Reason: nausea and vomiting) Qty: 7 0RF No Action tamsulosin 0.4 mg capsule 0.4 mg PO BEDTIME Qty: 90 3RF Referrals: Richelle Dozier MD [Primary Care Provider] - Stand Alone Forms: Patient Portal/API
[2024-06-02 14:03] LABS: Bacteria Urine None Seen; Mucus Urine 1+ (Negative); RBC Urine None Seen (0-5/HPF); Squamous Epithelial Cell Urine None Seen (0-5/HPF); Urine Volume 10mL (spun); WBC Urine None Seen (0-5/HPF)
[2024-06-02 14:04] LABS: Culture Indicated Urine Cult Not Indicated
[2024-06-02 14:16] LABS: Lactate 2HR (Lactic Acid Rflx) 1.7 mmol/L (0.7-2.1)
--- NOTE | 2024-06-02 14:52 | DI.CT.S_ITS ---
PROCEDURE: CT HEAD/BRAIN WO CON INDICATIONS: double vision, SANTILLAN TECHNIQUE: Noncontrast 4.5 mm thick angled axial sections acquired from the foramen magnum to the vertex, with coronal and sagittal reformats. For radiation dose reduction, the following was used: automated exposure control, adjustment of mA and/or kV according to patient size. COMPARISON: None. FINDINGS: Image quality: Diagnostic. CSF spaces: Basal cisterns are patent. No extra-axial fluid collections. The ventricles are symmetric in size and shape. Brain: No intracranial bleeds or masses. There is cerebral volume loss for age, with resultant ventricular and sulcal prominence. There are periventricular and deep white matter chronic small vessel ischemic changes. Skull and face: Calvarium and visualized facial bones appear intact, without suspicious lesions. Sinuses: Visualized sinuses and mastoids are clear. IMPRESSION: No acute intracranial pathology. Dictated by: Myrna Pickard M.D. on 06/02/2024 at 14:17 Approved by: Myrna Pickard M.D. on 06/02/2024 at 14:19
[2024-06-02] MEDS: ACETAMINOPHEN 325 MG TABLET 975 MG PO (15:08)
--- NOTE | 2024-06-02 16:26 | PC.NURSE ---
Pt reports improvement in headache
== END 2024-06-02 16:45 | disposition home or self-care (01) ==
PROVIDERS: Emergency Provider Emergency Medicine; PCP Internal Medicine Hematology & Oncology
DX: A05.9 Bacterial foodborne intoxication, unspecified (principal); R11.2 Nausea with vomiting, unspecified; R51.9 Headache, unspecified; H53.2 Diplopia; E86.0 Dehydration; D46.9 Myelodysplastic syndrome, unspecified
CPT/HCPCS: 36415; 70450; 80053; 81003; 81015; 83605; 85007; 85025; 93005; 96360; 96361; 99284